=== PATIENT | male | born 1960 | race Caucasian/White ===

== ENCOUNTER 2020-06-28 00:36 | Outpatient (CLI) | payer BC, SELFPAY ==
[2020-06-28 18:35] LABS: SARS-CoV-2 RNA PCR Negative
== END 2020-06-28 00:37 | disposition home or self-care (01) ==
LOC: ANHCOVIDDT 00:36
PROVIDERS: PCP Internal Medicine; Visit Provider Internal Medicine Gastroenterology
DX: Z01.812 Encounter for preprocedural laboratory examination (principal); Z20.828 Contact with and (suspected) exposure to other viral communicable diseases
CPT/HCPCS: 87635; C9803; U0003

== ENCOUNTER 2020-07-01 01:33 | Day surgery (SDC) | payer BC, SELFPAY ==
[2020-06-20 13:20] VITALS: BMI 28.4
--- NOTE | 2020-07-01 07:03 | WPDANESEPPF ---
Anes - Initial Pre Proc Eval Procedure: Operation Date: 07/01/20 09:30 Proposed Procedures p Colonoscopy - Brock Turner MD Date/Time: 07/01/20 07:03 Surgeon: Brock Turner MD Pre Op Diagnosis: Chronic Diarrhea Patient Data Age: 59 Gender: M Height: 1.78 m Weight: 90 kg Allergies Allergy/AdvReac Type Severity Reaction Status Date / Time lisinopril Allergy Mild cough Verified 07/01/20 08:38 Penicillins Allergy Mild Rash Verified 07/01/20 08:38 Home Medications Medication Instructions Recorded Confirmed Type losartan 100 mg tablet 100 mg PO DAILY #90 tablet 04/24/20 06/20/20 Rx Patient hx anesthesia problems: none Family hx anesthesia problems: none PMFSH Past Medical History Medical History (Updated 07/01/20 @ 07:03 by Tyree Aquino MD) Essential (primary) hypertension Overweight (BMI 25.0-29.9) Pure hypercholesterolemia Social History Social History (Updated 06/12/20 @ 17:14 by Tiffanie Toribio MA) Smoking status: Never smoker Second hand tobacco smoke exposure: No Alcohol intake: never Substance use: never Anes - Eval Final PreProcedure Day of Procedure 07/01/20 07:03 Patient weight: overweight Heart: regular rate and rhythm Lungs: clear to auscultation and normal air movement Airway: Mallampati scale class II Neurological: alert and oriented Last oral intake: >/= 8 hours ASA classification: II Emergent: no Anesthetic plan: proceed Anesthesia type and monitoring: general GIVS Informed Consent: The patient's anesthetic plan and its attendant risks and benefits were discussed with the patient/family/POA. Questions were solicited and answers provided to the satisfaction of the patient/family/POA.
[2020-07-01 08:39] VITALS: BMI 31.1
[2020-07-01] MEDS: LACTATED RINGERS 1,000 ML 150 ML IV CONT (08:49)
--- NOTE | 2020-07-01 09:39 | WPDGICN ---
Assessment and Plan Assessment and plan (1) Encounter for diagnostic colonoscopy due to change in bowel habits: Code(s): R19.4 - Change in bowel habit Status: Acute Assessment and Plan: Patient now notes loose frothy stools. Outpatient management has not been helpful. Patient presents today for colonoscopy. Differential diagnosis is broad. But irritable bowel soon as possible. Plan is for high-fiber diet and probiotic trial if colonoscopy is unremarkable. GI Consult Note Consult date/time: 07/01/20 09:39 HPI: Chris Roe is a 59 year old male seen in evaluation at the request of Dr Jiménez. Patient reports change in bowel habits. Patient reports over last 3 months has had more loose liquidy stools. Frothy in nature. He denies any bleeding or weight loss. He denies abdominal pain. Diarrhea never occurs at night. He intermittently will have normal stools. Family history is noncontributory. Last colonoscopy 5 years ago was unremarkable. Review of Systems Review of Systems: All systems reviewed & are unremarkable except as noted in HPI and below PMFSH Past Medical History Medical History Essential (primary) hypertension Overweight (BMI 25.0-29.9) Pure hypercholesterolemia Family History Family History Mother Hypertension Social History Social History Smoking status: Never smoker Second hand tobacco smoke exposure: No Alcohol intake: never Substance use: never Meds Home Medications and Allergies Home Medications Medication Instructions Recorded Confirmed Type losartan 100 mg tablet 100 mg PO DAILY #90 tablet 04/24/20 06/20/20 Rx Allergies Allergy/AdvReac Type Severity Reaction Status Date / Time lisinopril Allergy Mild cough Verified 07/01/20 08:38 Penicillins Allergy Mild Rash Verified 07/01/20 08:38 Exam Narrative: Exam Narrative: Physical exam reveals patient to be alert. Vital signs stable. HEENT exam unremarkable. Lungs are clear to auscultation and percussion. Heart is without murmur or extra sounds. Abdominal exam bowel sounds are present soft nontender with no organomegaly. Digital external rectal exam is normal.
[2020-07-01 10:16] VITALS: BP 116/84; PULSE 65; RESP 18; O2SAT 100
[2020-07-01 10:26] VITALS: BP 123/83; PULSE 67; RESP 18; O2SAT 100
[2020-07-01 10:36] VITALS: BP 115/81; PULSE 68; RESP 18; O2SAT 100
== END 2020-07-01 10:50 | disposition home or self-care (01) ==
PROVIDERS: PCP Internal Medicine; Visit Provider Internal Medicine Gastroenterology
PROC: 0DJD8ZZ Inspection of Lower Intestinal Tract, Via Natural or Artificial Opening Endoscopic (ICD-10-PCS; CPT 45378; principal; 2020-07-01 09:30)
DX: K52.9 Noninfective gastroenteritis and colitis, unspecified (principal); K64.8 Other hemorrhoids; I10 Essential (primary) hypertension; E78.00 Pure hypercholesterolemia, unspecified
CPT/HCPCS: 45380; 88305; J2704; J7120

== ENCOUNTER 2020-07-08 15:47 | Outpatient (CLI) | payer BC, SELFPAY ==
--- NOTE | ~2020-07-08 | CT_ITS ---
EXAMINATION: CT abdomen pelvis w con DATE: 07/08/2020 17:04 INDICATION: Abnormal mucosa in the colon. TECHNIQUE: Computed tomography (CT) of the abdomen and pelvis was performed with 100 cc Omnipaque 350 intravenous contrast. The dose-length product was 864.77 mGy-cm. Automated exposure control and iter ative reconstruction technique were employed. COMPARISON: None. FINDINGS: Lung bases are unremarkable. No significant pleural or pericardial effusion. Heart size nor mal. The liver, spleen, pancreas, adrenal glands and kidneys are unremarkable. Gallbladder is present. The liver, spleen, pancreas, adrenal glands and kidneys are unremarkable. Gallbladder is present. Coloni c diverticulosis without evidence for diverticulitis. Enlarged prostate gland. Nonobstructive bowel g as pattern. No free air or free fluid. Gallbladder is present. Small fat-containing umbilical hernia. Small bilateral hydroceles. Moderate lower thoracic and lumbar spondylosis. IMPRESSION: 1. No acute abdominal abnormality. 2: Enlarged prostate gland. Reviewed, dictated and finalized at location A.
[2020-07-08 16:55] LABS: Estimated Glomerular Filt Rate 52
== END 2020-07-08 15:48 | disposition home or self-care (01) ==
PROVIDERS: PCP Internal Medicine; Visit Provider Internal Medicine Gastroenterology
DX: N40.0 Benign prostatic hyperplasia without lower urinary tract symptoms (principal)
CPT/HCPCS: 74177; Q9967

== ENCOUNTER 2024-12-07 08:32 | Emergency (ER) | payer OTHER, BC, SELFPAY ==
--- NOTE | ~2024-12-07 | XR_ITS ---
EXAMINATION: XR knee RT min 4V DATE: 12/07/2024 10:06 INDICATION: Right knee pain. TECHNIQUE: 4 views of right knee were obtained. COMPARISON: None. FINDINGS: Alignment is normal. No fracture. There is mild tricompartmental osteoarthritis. There is a large knee joint effusion. IMPRESSION: 1. Mild right knee osteoarthritis. 2. Large right knee joint effusion. Reviewed, dictated and finalized at location B. DBA
[2024-12-07 08:46] VITALS: BP 160/94; PULSE 84; RESP 18; TEMP 36.6; O2SAT 100
--- NOTE | 2024-12-07 09:57 | ED_ITS ---
HPI - Extremity Injury (Lower) General Chief Complaint: Extremity Injury, Lower Stated Complaint: right knee injury Time Seen by Provider: 12/07/24 09:09 History of Present Illness HPI Narrative: Patient is a 64-year-old male who presents to the ER with right knee pain. He reports he was carrying a tailgate this morning and slipped on the ice. Patient reports he did not fall but twisted his knee and experienced immediate pain. He reports he has full range of motion that has increased pain especially when straightening his legs. Patient reports his only medical history of high blood pressure and a right shoulder rotator cuff repair. He denies any calf pain, bruising, extreme swelling, recent signs/symptoms of illness, previous injury to the extremity. Related Data Allergies Allergy/AdvReac Type Severity Reaction Status Date / Time lisinopril Allergy Mild cough Verified 12/07/24 08:51 Penicillins Allergy Mild Rash Verified 12/07/24 08:51 Review of Systems Review of Systems: All systems reviewed & are unremarkable except as noted in HPI and below PMFSH Past Medical History Medical History (Updated 12/07/24 @ 10:32 by Lucinda Salgado APRN) Overweight (BMI 25.0-29.9) Essential (primary) hypertension Pure hypercholesterolemia Family History Family History Mother Hypertension Social History Social History Smoking status: Never smoker Second hand tobacco smoke exposure: No Alcohol intake: never Substance use: never Lack of Transportation: No Lack of Food: Never True Current Housing: I Have Housing Concerned About Future Housing: No Difficulty Paying Gas/Electric Bills: No Difficulty Paying for Meds: No Currently Unemployed: No Education: High School Diploma/GED Difficulty w/ Childcare or Family Care: No Exam Narrative: GENERAL: Well appearing, well-nourished, non-toxic, in no acute distress. HEAD: Normocephalic, atraumatic. NECK: Supple. No adenopathy, no masses. RESPIRATORY: Airway patent, respirations nonlabored. Clear to auscultation bilaterally, no rales, rhonchi, wheezing. CARDIOVASCULAR: Regular rate and rhythm without murmurs, rubs, or gallops. Peripheral pulses 2+ and equal bilaterally. ABDOMINAL: Soft, nontender, nondistended, no hepatosplenomegaly. Normoactive BS. MUSCULOSKELETAL: Moves all extremities. Strength/ROM intact without gross deformities. SKIN: Warm, dry, normal color. No rashes. NEURO: A&O X3. Speech clear. Cranial nerves II-XII grossly intact. Steady gait. No ataxic movements. PSYCHIATRIC: Appropriate mood and affect. Normal interaction. Course Vital Signs Vital signs: Vital Signs Temperature 36.6 C 12/07/24 08:46 Pulse Rate 84 12/07/24 08:46 Respiratory Rate 18 12/07/24 08:46 Blood Pressure 160/94 H 12/07/24 08:46 Pulse Oximetry 100 12/07/24 08:46 Oxygen Delivery Room Air 12/07/24 08:46 Temperature 36.6 C 12/07/24 08:46 Pulse Rate 84 12/07/24 08:46 Respiratory Rate 18 12/07/24 08:46 Blood Pressure 160/94 H 12/07/24 08:46 Pulse Oximetry 100 12/07/24 08:46 Oxygen Delivery Room Air 12/07/24 08:46 MDM - Extremity Injury (Lower) MDM Narrative Medical decision making narrative: Patient is a 64-year-old male who presents to the ER with right knee pain. He reports he was carrying a tailgate this morning and slipped on the ice. Patient reports he did not fall but twisted his knee and experienced immediate pain. He reports he has full range of motion that has increased pain especially when straightening his legs. Patient reports his only medical history of high blood pressure and a right shoulder rotator cuff repair. He denies any calf pain, bruising, extreme swelling, recent signs/symptoms of illness, previous injury to the extremity. Labs Ordered: None necessary Imaging Ordered: Right knee x-ray Medications ordered: None necessary Results: Right knee x-ray indicates 1.Mild right knee osteoarthritis. 2. Large right knee joint effusion. Diagnosis: Right knee strain/sprain Consults: orthopedics (outpatient) Patient Education/Shared MDM: Results shared with patient. He should follow up with Orthopedics as soon as possible. Patient to take regularly scheduled ibuprofen 800 mg to help decrease swelling. He should keep his knee stabilized until he sees orthopedics. Patient verbalizes understanding and is agreement plan. Differential Diagnosis Differential diagnosis: Likely other (Right knee sprain, right knee strain, right knee ACL tear, right knee meniscus tear) Imaging Data Attestation: I personally reviewed and interpreted this imaging study as follows: Radiologist's impression: Impressions Knee X-Ray 12/07/24 10:20 IMPRESSION: 1. Mild right knee osteoarthritis. 2. Large right knee joint effusion. Discharge Plan Discharge Clinical Impression: Right knee sprain Patient Disposition: Home, Self-Care Condition: Stable Instructions: Antibiotic Form, Knee Sprain (ED), P.R.I.C.E. Treatment (ED) Additional Instructions: Please follow-up with orthopedics as soon as possible. Keep your knee in a brace until you see them. Take ibuprofen 800 mg 3 times a day to help decrease the swelling. Ice the area for 20 minutes at a time four times a day. Return to the ER with any worsening symptoms. Patient Language: Venezuelan Prescriptions: New ibuprofen 800 mg tablet 800 mg PO TID Qty: 20 0RF No Action betamethasone valerate 0.1 % cream 1 applic topical BID Qty: 15 2RF losartan 100 mg tablet 100 mg PO DAILY Qty: 90 3RF Follow-up/Referrals: Priyank Morales MD [Physician] - (orthopedics) Jessy,Giovanni Fischer DO [Primary Care Provider] - Time of Disposition: 10:41
--- OUTSIDE RECORDS SUMMARY | 2024-12-08 04:13 | XMS_ITS | Clinical Summary ---
Author Organization [facility] [address] Address [address] [place] [address] Care Team Providers Care Wellness Rn Name Role Phone Giovanni Jiménez MD Primary Care Provider [phone] Allergies Active Allergy Reactions Criticality Noted Date Comments Penicillins Medications losartan (COZAAR) 100 mg tablet 04/29/2022 Activ e Active Problems Problem Noted Date Diagnosed Date Injury of finger 01/22/2012 Injury of wrist 01/20/2012 Social History Tobacco Use Types Packs/Day Years Used Date Smoking Tobacco: Never Personal Safety Answer Date Recorded Getting School Help Needed Not on file 01/28 Sex and Gender Information Value Date Recorded Sex Assigned at Not on file 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 Gender Identity Not on file Sexual Orientation Not on file Obstetrics History Last Filed Vital Signs Vital Sign Reading Time Taken Comments Blood Pressure 131/85 07/06/2022 8:05 AM CDT Pulse 60 07/06/2022 8:05 AM CDT Temperature 36.9 ??C (98.4 ??F) 07/06/2022 8:05 AM CD T Respiratory Rate 16 07/06/2022 8:05 AM CDT Oxygen Saturation 98% 07/06/2022 8:05 AM CDT Inhaled Oxygen Concentration - - Weight 98 kg (216 lb) 07/06/2022 8:05 AM CDT Height 175.3 cm (5' 9 ) 07/06/2022 8:05 AM CDT Body Mass Index 31.9 07/06/2022 8:05 AM CDT Plan of Treatment Health Maintenance Due Date Last Done Comments Colon Cancer Screening-Colonoscopy 1962 Depression Screening 1962 Hepatitis C Screening 1962 Prostate Cancer Screening-PSA 1962 DTaP/Tdap/Td Vaccine (1 - Tdap) 1973 Hepatitis B Screening 1980 Regular Well Visit/Exam 18-64 1980 Zoster Vaccine (1 of 2) 2012 Covid-19 Vaccine (3 - 2023-2 5 season) 2024 01/02/2021, 12/11/2020 Influenza Vaccine (#1) 2024 0, 08/30/2013 Pneumococcal vaccine <65 Aged Out No longer eligible based on patient's age to complete this topic Insurance [facility] Care Teams Wellness Rn Relationship Specialty Start Date End Date Giovanni Jiménez MD [address] [place] [address] PCP - General Internal Medicine 07/06/22
--- OUTSIDE RECORDS SUMMARY | 2024-12-08 04:13 | XMS_ITS | Referral Summary ---
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
--- OUTSIDE RECORDS SUMMARY | 2024-12-08 04:13 | XMS_ITS | Continuity of Care Document ---
Author Organization [facility] Address [address] [place] [address] utive [facility] [address] [place] [address] Phone Care Team Providers Care Fabric Lay Out Worker Name Role Phone Lilly OD, Brock Unavailable Unavailable Procedures Procedure Date Eye Exam, New Patient Refraction Advance Directives Directive Yes / No Effective Date File Name No Information Encounters Encounter Description Practice Location Reason(s) For Visit Diagnoses Date Provider Providers Copied on Encounter [facility], [id number] [place] [address] [address], [place], [place], [id number], [place] tel:[phone] [facility] No Information 1-201 0 Lilly OD Brock. [address] , [address], [place], [address], [place]. tel:[phone] Family History Family Member Type Diagnosis Age At Onset No Information Payers Payer name Insurance type Covered alliance party ID Authoriza tijared(s) [employer] CI [id number] Social History Type Description Quantity Date Captured Comments Sex Male Smoking Status No Information Chief Complaint And Reason For Visit No Information Reason For Referral Reason For Referral No Information History Of Present Illness Encounter Date Complaint History Of Prese nt Illness No Information Functional Status Date Functional Assessmen t No Information Instructions Date Instruction Additional Infor mation No Information Assessments Type Assessment Date No Information Patient Care Teams Name Effective Dates (start - stop) Status Members No Information
== END 2024-12-07 11:18 | disposition home or self-care (01) ==
PROVIDERS: Emergency Provider Registered Nurse; PCP Internal Medicine
DX: S83.91XA Sprain of unspecified site of right knee, initial encounter (principal); W00.0XXA Fall on same level due to ice and snow, initial encounter; I10 Essential (primary) hypertension; E78.00 Pure hypercholesterolemia, unspecified
CPT/HCPCS: 73564; 99283

== ENCOUNTER 2024-12-21 09:54 | Outpatient (CLI) | payer OTHER, SELFPAY ==
--- NOTE | ~2024-12-21 | MR_ITS ---
EXAMINATION: MR knee RT wo con DATE: 12/21/2024 10:23 INDICATION: Right knee pain post injury TECHNIQUE: Magnetic resonance imaging (MRI) of the right knee was performed without intravenous contr ast. Sequences included coronal PD-weighted FSE, coronal PD-weighted FS FSE, sagittal T2-weighted FS E, sagittal PD-weighted FS FSE and axial PD weighted fat saturated FSE. COMPARISON: Radiographs dated 12/07/2024 FINDINGS: Medial compartment: Complex tear at the posterior horn of the medial meniscus with combination of both longitudinal horiz ontal and vertical parrot beak configuration tear planes. Partial-thickness chondral ulceration and d eeper fissuring without degenerative subchondral changes along the anterior to posterior weightbearin g medial femoral condyle. Cartilage of the medial tibial plateau is normal. Lateral compartment: Complex tear at the posterior horn of the lateral meniscus is macerated appearance of the meniscal ti ssue along the inner third and inferior articular surface. Deep chondral fissuring without degenerati ve subchondral changes extending anteroposteriorly central to posterior aspect of the lateral tibial plateau. Mild chondral surface regularity at the posterior weightbearing lateral femoral condyle. The re is suggestion of a small region of posterior layering delamination with subtle linear increased fl uid signal near the bone chondral interface at the posterior weightbearing lateral femoral condyle. Patellofemoral compartment: Partial-thickness chondral ulceration with tiny focus of underlying edema-like signal change at the c ephalad aspect of the patellar apical ridge. There is partial thickness chondral fissuring without de generative change or inferiorly at the apical ridge extending into the inferomedial aspect of the lat eral patellar facet. Shallow chondral ulceration and deeper fissuring with tiny focus of degenerative facet chondral edema-like signal change at the inferior aspect of the medial trochlea. Partial-thick ness chondral ulceration without degenerative subchondral changes at the lateral trochlea. Ligaments and tendons: Anterior and posterior cruciate ligaments are normal. The medial collateral ligament and fibular debbi ateral ligament complex are normal. Patellar enthesophytes and mild tendinopathy/enthesopathy without tear at the distal quadriceps and proximal patellar tendons. The visualized medial and lateral hamst ring tendons as well as the iliotibial band are normal. Fluid: Small right knee joint effusion at the suprapatellar pouch. No loose osteochondral bodies identified. Osseous/other: Bone alignment is normal. No fracture or pathologic marrow replacing process. IMPRESSION: 1. Complex tears of the posterior horn medial and lateral disc height. 2. Mild tricompartmental osteoarthritis with moderate grade chondral malacia the medial and lateral c ompartments and moderate to high-grade chondral malacia in patellofemoral compartment. 3. Chronic proximal and distal patellar enthesopathy. Reviewed, dictated and finalized at location A. INE CLEANER IMPRESSION: 1. Complex tears of the posterior horn medial and lateral disc height. 2. Mild tricompartmental osteoarthritis with moderate grade chondral malacia th e medial and lateral compartments and moderate to high-grade chondral malacia i n patellofemoral compartment. 3. Chronic proximal and distal patellar enthesopathy.
== END 2024-12-21 09:55 | disposition home or self-care (01) ==
PROVIDERS: PCP Orthopaedic Surgery; Visit Provider Orthopaedic Surgery
DX: S83.231D Complex tear of medial meniscus, current injury, right knee, subsequent encounter (principal); S83.271D Complex tear of lateral meniscus, current injury, right knee, subsequent encounter; X58.XXXD Exposure to other specified factors, subsequent encounter; M17.11 Unilateral primary osteoarthritis, right knee
CPT/HCPCS: 73721

== ENCOUNTER 2024-12-29 14:13 | Outpatient (CLI) | payer OTHER, SELFPAY ==
--- OUTSIDE RECORDS SUMMARY | 2024-12-29 14:15 | XMS_ITS | Referral Summary ---
Author Organization 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 Gender Identity Not on file Sexual Orientation Not on file Last Filed Vital Signs Vital Sign Reading Time Taken Comments Blood Pressure 131/85 07/06/2022 8:05 AM CDT Pulse 60 07/06/2022 8:05 AM CDT Temperature 36.9 C (98.4 F) 07/06/2022 8:05 AM CDT Respiratory Rate 16 07/06/2022 8:05 AM CDT Oxygen Saturation 98% 07/06/2022 8:05 AM CDT Inhaled Oxygen Concentration - - Weight 98 kg (216 lb) 07/06/2022 8:05 AM CDT Height 175.3 cm (5' 9 ) 07/06/2022 8:05 AM CDT Body Mass Index 31.9 07/06/2022 8:05 AM CDT Plan of Treatment Not on file Insurance [facility] Care Teams Distribution Operations Supervisor Relationship Specialty Start Date End Date Giovanni Jiménez MD [address] [facility] [address] [place] [address] PCP - General Internal Medicine 07/06/22
--- OUTSIDE RECORDS SUMMARY | 2024-12-29 14:15 | XMS_ITS | Continuity of Care Document ---
Author Organization [facility] Address [address] [place] [address] [address] [facility] [address] [place] [address] Phone Care Team Providers Care Tool Turret Lathe Set Up Operator Name Role Phone Lilly OD, Brock Unavailable Unavailable Procedures Procedure Date Eye Exam, New Patient Refraction Advance Directives Directive Yes / No Effective Date File Name No Information Encounters Encounter Description Practice Location Reason(s) For Visit Diagnoses Date Provider Providers Copied on Encounter [facility], [id number] [place] [address] [address], [place], [place], [id number], [place] tel:[phone] [facility] No Information 1-201 0 Lilly OD Brock. [address] , [address], [place], [address], [place]. tel:[phone] Family History Family Member Type Diagnosis Age At Onset No Information Payers Payer name Insurance type Covered green party ID Authoriza tijared(s) [employer] CI [id number] Social History Type Description Quantity Date Captured [...]
--- OUTSIDE RECORDS SUMMARY | 2024-12-29 14:15 | XMS_ITS | Clinical Summary ---
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
--- NOTE | 2024-12-29 15:00 | ECG_ITS ---
Test Date: 2024-12-29 14:42:06 Measurements Intervals Michael Rate: 76 P: 36 [place]: 148 QRS: -51 QRSD: 107 T: 24 QT: 369 QTc: 417 Interpretive Statements SINUS RHYTHM LEFT ANTERIOR FASCICULAR BLOCK BASELINE ARTIFACT- I, II, III, AVR, AVL, AVF, V1-V2 ABNORMAL ECG No previous ECG available for comparison Electronically Signed On 12-29-2024 15:32:12 CHEMIST PHYSICAL by Chris Aguilar D.O.
== END 2024-12-29 14:14 | disposition home or self-care (01) ==
PROVIDERS: PCP Internal Medicine; Visit Provider Orthopaedic Surgery
DX: I10 Essential (primary) hypertension (principal); Z01.818 Encounter for other preprocedural examination; I44.4 Left anterior fascicular block
CPT/HCPCS: 93005

== ENCOUNTER 2025-01-03 00:51 | Day surgery (SDC) | payer OTHER, SELFPAY ==
[2024-12-29 13:34] VITALS: BMI 31.8
--- NOTE | 2024-12-29 13:39 | PC.NURSE ---
Report to the Outpatient Waiting Room, entrance under the green pavilion located off [facility], at time _1130_ on date _[id number]_. Planned Procedure Time: _130pm_.? Time changes happen often and if your time is changed the preop area will call you the afternoon before. - You and your visitor will be asked to self-screen and do not enter if you have any COVID symptoms. Please call surgeon if you need to reschedule. - A mask is optional within the hospital at this time. Patients may have clear liquids (water, carbonated beverages, clear teas, apple juice) until 3 hours prior to surgery with a maximum of 20 ounces. - No food from midnight until time of surgery and no smoking, or chewing tobacco (or any form of nicotine). No chewing gum, candy or mints. Take only the following medications with a SIP of water on the morning of surgery: __None DO NOT STOP ANY OF YOUR OTHER PRESCRIPTION MEDICATIONS PRIOR TO SURGERY EXCEPT THE FOLLOWING Hold all vitamins and supplements for 3 days per anesthesiologist. Medications to discontinue per physician Date to take last dose Please no make-up, nail south african, hairspray, perfume, deodorant, or body powder the day of surgery.? No jewelry (including any body piercings) or valuables the day of surgery, leave them at home.? Please take a shower or bath the night before, or the morning of, surgery with an antibacterial soap.? Wear comfortable, loose fitting clothing.? - Jewelry must be removed prior to entering the operating room.? Rings and piercings that are not removed may be cut off. - The hospital will not accept responsibility for valuables.? - Please leave all valuables, including medications, at home the day of surgery. If you are going home after surgery, a licensed otr company driver must drive you home.? - NO public transportation without another adult if you receive anesthesia. - We recommend that an adult stay with you for 24 hours following discharge. - We also recommend that you do not drive, make important decision, drink alcoholic beverages, or take any drugs that were not prescribed by your health care provider for at least 24 hours after your discharge time. Follow any additional instructions given to you from your surgeon. Telephone instructions given to __Fabián__and asked if any additional questions and then verbalized understanding. Patient advised to call surgeon office or pre surgery nurse liaison [phone] if any additional questions.
[2025-01-03] VITALS (9 sets, daily range): BP systolic 101–150; BP diastolic 60–92; PULSE 59–74; RESP 10–18; TEMP 36.2–36.6; O2SAT 99–100; BMI 32.7
--- OUTSIDE RECORDS SUMMARY | 2025-01-03 00:53 | XMS_ITS | Clinical Summary ---
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
--- OUTSIDE RECORDS SUMMARY | 2025-01-03 00:53 | XMS_ITS | Referral Summary ---
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
--- OUTSIDE RECORDS SUMMARY | 2025-01-03 00:53 | XMS_ITS | Continuity of Care Document ---
Author Organization [facility] Address [address] [place] [address] utive [facility] [address] [place] [address] Phone Care Team Providers Care Checker/Stocker Name Role Phone Lilly OD, Brock Unavailable Unavailable Procedures Procedure Date Eye Exam, New Patient Refraction Advance Directives Directive Yes / No Effective Date File Name No Information Encounters Encounter Description Practice Location Reason(s) For Visit Diagnoses Date Provider Providers Copied on Encounter [facility], [id number] [place] [address] [address], [place], [place], [id number], [place] tel:[phone] [facility] No Information 1-201 0 Lilly OD Brock. [address], [place], [address], [place]. tel:[phone] Family History Family Member Type Diagnosis Age At Onset No Information Payers Payer name Insurance type Covered republican ID Authoriza tijared(s) [employer] CI [id number] Social History Type Description Quantity Date Captured [...]
--- NOTE | 2025-01-03 07:18 | WPDHPUPDATE1 ---
History and Physical Update Update Date/Time: 01/03/25 07:18 History and Physical has been reviewed, including an updated exam of the patient. There are NO changes in the patient's condition. Risks, benefits, and alternatives have been discussed and questions answered. Patient agrees to proceed with procedure.
[2025-01-03] MEDS: LACTATED RINGERS 1,000 ML 30 ML IV CONT ×2 (11:45→14:48)
[2025-01-03] MEDS: CELECOXIB 200 MG CAPSULE PO (11:53)
[2025-01-03] MEDS: ACETAMINOPHEN 500 MG TABLET 1000 MG PO (11:53)
--- NOTE | 2025-01-03 13:08 | WPDANESEPPF ---
Anes - Initial Pre Proc Eval Procedure: Operation Date: 01/03/25 13:30 Proposed Procedures p Right Knee Arthroscopy, Proceed As Indicated - Priyank Morales MD Date/Time: 01/03/25 13:08 Surgeon: Priyank Morales MD Pre Op Diagnosis: right knee medial and lateral meniscus tears Patient Data Age: 64 Gender: M Height: 1.75 m Weight: 100.5 kg Last Vital Signs Temp 97.8 F 01/03/25 11:20 Pulse 67 01/03/25 11:20 Resp 18 01/03/25 11:20 BP 142/77 H 01/03/25 11:20 Pulse Ox 100 01/03/25 11:20 O2 Del Method Room Air 01/03/25 11:20 Allergies Allergy/AdvReac Type Severity Reaction Status Date / Time lisinopril Allergy Mild cough Verified 01/03/25 12:03 Penicillins Allergy Mild Rash Verified 01/03/25 12:03 Home Medications ?Medication ?Instructions ?Recorded ?Confirmed ?Type losartan 100 mg tablet 100 mg PO DAILY #90 tabs 04/23/24 01/03/25 Rx Patient hx anesthesia problems: none Family hx anesthesia problems: none Results Review: All pre-operative results and documents have been reviewed as part of the pre-operative evaluation. [facility] Past Medical History Medical History Overweight (BMI 25.0-29.9) Essential (primary) hypertension Pure hypercholesterolemia Family History Family History Mother Hypertension Social History Social History Smoking status: Never smoker Second hand tobacco smoke exposure: No Alcohol intake: never Substance use: never Lack of Transportation: No Lack of Food: Never True Current Housing: I Have Housing Concerned About Future Housing: No Difficulty Paying Gas/Electric Bills: No Difficulty Paying for Meds: No Currently Unemployed: No Education: High School Diploma/GED Difficulty w/ Childcare or Family Care: No Living arrangements: with family Spiritual care concerns: No Anes - Eval Final PreProcedure Day of Procedure 01/03/25 13:08 Patient weight: overweight Lungs: normal air movement Airway: Mallampati scale class 1 Neurological: alert and oriented Last oral intake: >/= 8 hours ASA classification: II Emergent: no Anesthetic plan: proceed Anesthesia type and monitoring: general LMA and standard monitoring Results Review: All pre-operative results and documents have been reviewed as part of the pre-operative evaluation. HTN, physically active job, no cp or sob. Informed Consent: The patient's anesthetic plan and its attendant risks and benefits were discussed with the patient/family/POA. Questions were solicited and answers provided to the satisfaction of the patient/family/POA.
[2025-01-03] MEDS: ceFAZolin 2 GM/D5W 50 ML 2 GM/50 ML BAG IVPB (13:28)
[2025-01-03] MEDS: BUPivacaine HCL 0.5% 10 ML AMP 30 ML INFILTRATE (13:55)
--- NOTE | 2025-01-03 14:59 | W.PM.PROC2 ---
Procedure Note - Detailed Date of Procedure 01/03/25 Pre-op Diagnosis right knee medial and lateral meniscus tears Post-op Diagnosis Same (RIGHT MEDIAL AND LATERAL MENISCUS TEAR) Procedure Performed RIGHT KNEE SCOPE Surgeon Priyank Morales MD Anesthesia General Description of Procedure PATIENT WAS TAKEN TO THE OR. THE RIGHT LEG WAS PREPPED AND DRAPED STERILE. TROCARS WERE PLACED IN THE USUAL FASHION. CAMERA WAS INTRODUCED. THERE WAS CHONDROMALACIA TO THE PATELLA FEMORAL JOINT. THERE WAS A LOT OF SYNOVITIS IN ALL COMPARTMENTS. THE MEDIAL COMPARTMENT SHOWED CHONDROMALACIA TO THE MEDIAL FEMORAL CONDYLE. A SHAVER WAS USED TO PREFORM A CHONDROPLASTY. THERE WAS A COMPLEX MEDIAL MENISCUS TEAR. THE TEAR WAS RESECTED WITH A BITER AND A SHAVER DOWN TO A SMOOTH BASE. . THE ACL WAS INTACT. THE LATERAL MENISCUS WAS TORN AT THE MID SECTION. THE TEAR WAS RESECTED. THERE WAS ALSO A TEAR AT THE LATERAL MENISCAL ROOT WHICH E=WAS RESECTED WELL. THE LATERAL COMPARTMENT HAD MINIMAL CHONDROMALACIA AT THE LATERAL PLATEAU. CHONDROPLASTY WAS PREFORMED. A SYNOVECTOMY WAS PREFORMED WELL. THE PATELLO FEMORAL JOINT UNDERWENT CHONDROPLASTY. THERE WAS GRADE 3 CHONDROMALACIA IN PART OF THE TROCHLEA AND PART OF THE PATELLA. SYNOVECTOMY WAS PREFORMED IN THE SUPERIOR MEDIAL COMPARTMENT. THE WOUNDS WERE APPROXIMATED WITH 4.0 NYLON. STERILE DRESSING WAS APPLIED. PATIENT WAS EXTUBATED. Estimated Blood Loss 5 Complications No immediate complications Condition Stable Disposition PACU
[2025-01-03] MEDS: oxyCODONE HCL (*CRX) 5 MG TAB IR PO (15:52)
== END 2025-01-03 17:11 | disposition home or self-care (01) ==
PROVIDERS: PCP Internal Medicine; Visit Provider Orthopaedic Surgery
PROC: (CPT 29870; principal; 2025-01-03 13:30)
DX: S83.231A Complex tear of medial meniscus, current injury, right knee, initial encounter (principal); S83.281A Other tear of lateral meniscus, current injury, right knee, initial encounter; M94.261 Chondromalacia, right knee; M65.861 Other synovitis and tenosynovitis, right lower leg; I10 Essential (primary) hypertension; E78.00 Pure hypercholesterolemia, unspecified; W00.0XXA Fall on same level due to ice and snow, initial encounter
CPT/HCPCS: 29880; A9270; J0690; J1100; J2003; J2250; J2405; J2704; J3010; J7120

== ENCOUNTER 2025-06-06 09:00 | Outpatient (RCR) | payer OTHER, SELFPAY ==
--- NOTE | 2025-06-04 16:19 | OPREHPOC ---
Outpatient Therapy Plan of Care This is a Multidisciplinary Plan of Care that may contain components documented by all disciplines (PT, OT, and ST.) PT Problem 1 PT Problem #1 Knowledge Deficit PT Goal 1 Goal / Goal Update *independent with HEP Target Visit 6 PT Problem 2 PT Problem #2 Pain PT Goal 1 Goal / Goal Update * pt report pain at worst of 1/10 with increased strengthening and simulated job tasks Target Visit 6 PT Problem 3 PT Problem #3 Impaired Strength PT Goal 1 Goal / Goal Update increase strength of L LE to improve activity and job tasks: 1* pt perform simulated job task on BTE x 5 minutes 2* bilateral UE 40# box lift waist/floor height x 3 reps without pain increase 3* single leg small squat x 10 reps with good stability Target Visit 6
--- NOTE | 2025-06-04 16:19 | PTOPEVAL1 ---
Assessment and note entered by Silvia Dawn, PT Evaluation Information Assessment Status Evaluation ICD-10 Condition Codes (PT) Pain in right knee M25.561,Encounter for other orthopedic aftercare Z47.89 Other ICD-10 Condition Codes ( OA of knee M17.11; effusion of knee M25.461 PT) Onset 12-07-24 Subjective Information R knee arthroscopy 01-03-25; did leg exercises right after surgery, but not doing any more- lying down exercises; have not had therapy since surgery; have been off work since Nov injury; is doing all home tasks and self care; at home- have basement stairs, uncomfortable and feel like it is going to give out work: 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 LE functional scale rating of 38% limitation in activity level. He works at a physical job for the [employer] And has not worked since the November injury to his knee. With stairs, walking distances and uneven surfaces, reports knee feeling uncomfortable and going to give out, but it does not. With the evaluation: R knee AROM is WNL with crepitus with flexion and extension; decrease strength of R LE with standing activities; slight limp R LE with walking. Skilled PT services are indicated to increase R LE strength and improve walking and mobility skills, with progression to job simulated tasks of lifting and shoveling. Education for HEP and body mechanics. Use of modalities PRN for pain. Plan of Care Interventions Electrical Stimulation,Hot Pack/Cold Pack,Manual Therapy,Neuro Re-education,Patient/Caregiver Education,Therapeutic Activities,Therapeutic Exercise PT Services Indicated Yes Treatment Frequency and 2x/wk for 6 visits Duration These treatments will address the objective and functional deficits as defined above. The patient will be advanced safely and appropriately in order for the patient to progress towards his/her prior level of function. Additional exercises will be introduced and as well as a comprehensive home exercise program upon discharge, if needed, ?to ensure carryover of functional gains achieved in the clinic. This treatment plan has been reviewed and agreement upon by the patient.
--- NOTE | 2025-09-11 11:47 | PCPTNOTE ---
PHYSICAL THERAPY DISCHARGE 09-11-25 Dr. Morales Mr. Roe received the PT evaluation on June 04 and did not return for any further treatment. Discharge PT. The goals were not addressed.
== END 2025-09-02 23:59 | disposition home or self-care (01) ==
LOC: ANHPT 09:00
PROVIDERS: PCP Internal Medicine; Visit Provider Orthopaedic Surgery
DX: M25.461 Effusion, right knee (principal); S83.281A Other tear of lateral meniscus, current injury, right knee, initial encounter; M17.11 Unilateral primary osteoarthritis, right knee
CPT/HCPCS: 97110; 97161; 97530

== ENCOUNTER 2025-06-12 10:41 | Emergency (ER) | payer BC, SELFPAY ==
--- NOTE | ~2025-06-12 | XR_ITS ---
HISTORY: LACERATIONS ON DIGITS 3 AND 4 COMPARISON: None TECHNIQUE: 3 views of the left hand were performed. FINDINGS: Acute minimally displaced fracture is identified within the tuft of the fourth digit. No additional fractures are appreciated. Lungs are now identified within the In size The joint spaces are preserved. The carpal arcs are intact. Mild radiocarpal joint space narrowing with sclerosis of the distal radius is present. Bone mineralization is age appropriate. Moderate soft tissue swelling. No radiopaque foreign body is identified. IMPRESSION: Acute tuft fracture along the dorsum of the the left 4th digit, as detailed above Reviewed, dictated and finalized at location A. IMPRESSION: Acute tuft fracture along the dorsum of the the left 4th digit, as detailed abo ve
--- OUTSIDE RECORDS SUMMARY | 2025-06-12 10:48 | XMS_ITS | Referral Summary ---
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
--- OUTSIDE RECORDS SUMMARY | 2025-06-12 10:48 | XMS_ITS | Continuity of Care Document ---
Author Organization [facility] Address [address] [place] [address] [address] [place] [address] Phone Care Team Providers Care Tax Attorney Name Role Phone Lilly OD, Brock Unavailable Unavailable Procedures Procedure Date Eye Exam, New Patient Refraction Advance Directives Directive Yes / No Effective Date File Name No Information Encounters Encounter Description Practice Location Reason(s) For Visit Diagnoses Date Provider Providers Copied on Encounter [facility], [address] [place] [address] [address], [place], [place], [id number], [place] tel:[phone] [facility] No Information 1-201 0 Lilly OD Brock. [address] , [address], [place], [address], [place]. tel:[phone] Family History Family Member Type Diagnosis Age At Onset No Information Payers Payer name Insurance type Covered republican ID Authoriza tijared(s) [employer] CI [id number] Social History Type Description Quantity Date Captured [...]
--- OUTSIDE RECORDS SUMMARY | 2025-06-12 10:48 | XMS_ITS | Clinical Summary ---
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
[2025-06-12 10:53] VITALS: BP 144/79; PULSE 66; RESP 17; TEMP 36.3; O2SAT 98
[2025-06-12] MEDS: HYDROcodone/acetaminophen (*CRX) 5-325 MG TABLET 1 TAB PO (11:38)
--- OUTSIDE RECORDS SUMMARY | 2025-06-12 11:39 | XMS_ITS | Referral Summary ---
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
--- OUTSIDE RECORDS SUMMARY | 2025-06-12 11:39 | XMS_ITS | Clinical Summary ---
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
--- OUTSIDE RECORDS SUMMARY | 2025-06-12 11:39 | XMS_ITS | Continuity of Care Document ---
Author Organization [facility] Address [address] [place] [address] [address] [place] [address] Phone Care Team Providers Care Maple Syrup Maker Name Role Phone Lilly OD, Brock Unavailable Unavailable Procedures Procedure Date Eye Exam, New Patient Refraction Advance Directives Directive Yes / No Effective Date File Name No Information Encounters Encounter Description Practice Location Reason(s) For Visit Diagnoses Date Provider Providers Copied on Encounter [facility], [address] [place] [address] [address], [place], [place], [id number], [place] tel:[phone] [facility] No Information 1-201 0 Lilly OD Brock. [address] , [address], [place], [address], [place]. tel:[phone] Family History Family Member Type Diagnosis Age At Onset No Information Payers Payer name Insurance type Covered democrat ID Authoriza tijared(s) [employer] CI [id number] Social History Type Description Quantity Date Captured [...]
[2025-06-12] MEDS: TETANUS,DIPHTHERIA,AC PERTUSSIS ADULT (0.5 ML) BOOSTRIX IM (11:40)
[2025-06-12] MEDS: LIDO 1%/EPINEPHRINE 1:100,000 20 ML VIAL INFILTRATE (12:29)
--- NOTE | 2025-06-12 12:31 | ED.GENADULT ---
HPI - General Adult General Chief complaint: Extremity Injury, Upper Stated complaint: L middle finger injury Time Seen by Provider: 06/12/25 11:12 History of Present Illness HPI narrative: Patient is a 64-year-old male who presents ER with injury to the left 4th and 3rd digits. He was working on the wheel of a car when he spun it and got his fingers caught. He suffered laceration to palmar aspect. No numbness or tingling. Flexion and extension of the IP is intact at each finger. Unknown last tetanus. Bleeding controlled. Related Data Allergies Allergy/AdvReac Type Severity Reaction Status Date / Time lisinopril Allergy Mild cough Verified 05/21/25 11:05 Penicillins Allergy Mild Rash Verified 05/21/25 11:05 Review of Systems Constitutional: Constitutional: Reports no additional constitutional complaints Musculoskeletal: Musculoskeletal: Reports no additional musculoskeletal complaints Integumentary/Breasts: Skin/Breast: Reports system reviewed and no additional complaints, except as docu Neurologic: Reports system reviewed and no additional complaints, except as documented [facility] Past Medical History Medical History (Updated 06/12/25 @ 14:46 by Jericho Naranjo MD) Overweight (BMI 25.0-29.9) Essential (primary) hypertension Pure hypercholesterolemia Family History Family History Mother Hypertension Social History Social History Smoking status: Never smoker Second hand tobacco smoke exposure: No Alcohol intake: never Substance use: never Lack of Transportation: No Lack of Food: Never True Current Housing: I Have Housing Concerned About Future Housing: No Difficulty Paying Gas/Electric Bills: No Difficulty Paying for Meds: No Currently Unemployed: No Education: High School Diploma/GED Difficulty w/ Childcare or Family Care: No Living arrangements: with family Spiritual care concerns: No Exam Narrative: GENERAL: Well-appearing, well-nourished, and in no acute distress. HEAD: Normocephalic, atraumatic. ENT: Mucous membranes moist. HEART: Regular rate and rhythm. Normal peripheral pulses. EXTREMITIES: Normal range of motion of the fingers of left hand with isolation of the IP joint. Neurovascular intact. Contusion of the 4th digit nail bed. SKIN: Warm, dry, no rash. Finger laceration of the distal digit of 3 (2.5cm) and 4 (3cm) on the left hand. NEURO: No focal deficits. Sharp and soft touch intact in the affected digits. Alert and oriented x3. PSYCH: Normal mood and affect. Course Course Emergency Course: Patient resting comfortably, wound irrigated and closed. Oral Keflex. Discussed with Dr. Fan who will follow patient up in clinic with PO keflex for home. Finger splint applied. Vital Signs Vital signs: Vital Signs Temperature 97.4 F L 06/12/25 10:53 Pulse Rate 66 06/12/25 10:53 Respiratory Rate 17 06/12/25 10:53 Blood Pressure 144/79 H 06/12/25 10:53 Pulse Oximetry 98 06/12/25 10:53 Oxygen Delivery Room Air 06/12/25 10:53 Temperature 97.4 F L 06/12/25 10:53 Pulse Rate 66 06/12/25 10:53 Respiratory Rate 17 06/12/25 10:53 Blood Pressure 144/79 H 06/12/25 10:53 Pulse Oximetry 98 06/12/25 10:53 Oxygen Delivery Room Air 06/12/25 10:53 Procedures Laceration Laceration 1: Date: 06/12/25 Site: other (3rd finger) Side (If applicable): left Size (cm): 2.5 Description: linear Local Anesthetic: lidocaine 1% and with epi Amount of anesthesia used (mL): 1.5 Pre-repair: wound explored and irrigated extensively ====== Skin Level ====== Skin layer closed with: nylon Size (cm): 5-0 Number of sutures: 7 Technique: simple, interrupted ====== Subcutaneous Layer ====== ====== Muscle Layer ====== ====== Tendon Layer ====== Laceration 2: Date: 06/12/25 Site: other (4th digit) Side (If applicable): left Size (cm): 3 Description: linear Depth: simple, single layer Local Anesthetic: with epi Amount of anesthesia used (mL): 1.5 Pre-repair: wound explored and irrigated ====== Skin Level ====== Skin layer closed with: nylon Size (cm): 4-0 Number of sutures: 7 Technique: simple, interrupted ====== Subcutaneous Layer ====== ====== Muscle Layer ====== ====== Tendon Layer ====== Medical Decision Making Vital Signs Vital Signs: Vital Signs Temperature 97.4 F L 06/12/25 10:53 Pulse Rate 66 06/12/25 10:53 Respiratory Rate 17 06/12/25 10:53 Blood Pressure 144/79 H 06/12/25 10:53 Pulse Oximetry 98 06/12/25 10:53 Oxygen Delivery Room Air 06/12/25 10:53 Temperature 97.4 F L 06/12/25 10:53 Pulse Rate 66 06/12/25 10:53 Respiratory Rate 17 06/12/25 10:53 Blood Pressure 144/79 H 06/12/25 10:53 Pulse Oximetry 98 06/12/25 10:53 Oxygen Delivery Room Air 06/12/25 10:53 Discharge Plan Discharge Clinical Impression: Finger laceration, Open fracture of tuft of distal phalanx of finger Patient Disposition: Home Condition: Stable Instructions: Laceration (ED), Finger Fracture (ED) Additional Instructions: Follow-up with hand surgery. Return ER if your fingers are red and hot, they are draining pus, or you have additional concerns. You will need the sutures removed in 2 weeks. Patient Language: Turkmen Prescriptions: New cephalexin 500 mg capsule 500 mg PO Q8H 10 Days Qty: 30 0RF hydrocodone-acetaminophen 5-325 mg tablet 1 tablet PO Q6H PRN (Reason: pain) Qty: 12 0RF No Action losartan 100 mg tablet 100 mg PO DAILY Qty: 90 3RF Follow-up/Referrals: Louise Fan MD [Physician] - 1 Week Mc Mcintosh DO [Primary Care Provider] - Stand Alone Forms: Work/School Release IP
[2025-06-12] MEDS: CEPHALEXIN 500 MG CAPSULE PO (14:19)
[2025-06-12 15:00] VITALS: BP 127/83; PULSE 62; RESP 20; O2SAT 97
== END 2025-06-12 15:05 | disposition home or self-care (01) ==
PROVIDERS: Emergency Provider Emergency Medicine; PCP Internal Medicine
DX: S62.635B Displaced fracture of distal phalanx of left ring finger, initial encounter for open fracture (principal); S61.213A Laceration without foreign body of left middle finger without damage to nail, initial encounter; Z23 Encounter for immunization; I10 Essential (primary) hypertension; E78.00 Pure hypercholesterolemia, unspecified; W23.0XXA Caught, crushed, jammed, or pinched between moving objects, initial encounter
CPT/HCPCS: 12002; 29130; 73130; 90471; 90715; 99284; A9270; J2004